=== PATIENT | male | born 1970 | race Caucasian/White ===

== ENCOUNTER 2016-05-11 20:57 | Emergency (ER) | payer OTHER ==
[~2016-05-11 20:57] MED LIST: ADVAIR DISKU1 INH; AMITRIPTYLINE H25 MG PO; FISH OIL PO; GLIPIZIDE5 MG PO; LANTUS SOL100 UNITS/ SC; LISINOPRIL20 MG PO; METFORMIN HCL1000 MG PO; PRO AIR IN; SPIRIVA18 MCG INH
--- NOTE | 2016-05-11 22:19 | ED ORDER SUMMARY ---
..... Patient: CESAR GRULLON OrderSheet [facility] VisitID: [id number] [address] [place] [address] 45y, M Registration Date/Time: 05/11/2016 ORDER SHEET Weight: 127.0 kg (stated) Allergies: No Known Drug Allergy GENERAL ORDERS: MEDICATION ORDERS: Albuterol Neb Tx 2.5 mg (NOW) (21:25 05/11/2016 Susy R.N. verbal order read back to Urban Buchanan) (21:26 Susy R.N.) Hydrocodone-APAP PO 5/325 mg (NOW, HIGH ALERT MEDICATION) (22:13 05/11/2016 KATHRYNivens A.R.N.P.) (22:19 Allyssa Quiroga.N.) IV FLUIDS: ORDER SHEET NOTES: [Electronically signed by Evelin MorenoR.N.PJosiah (22:34 05/11/2016)] [Electronically signed by Alayna Payton R.N. (11:05 05/12/2016)] [Electronically locked/signed by Alayna Payton R.N. (11:05/12/2016)]
--- NOTE | 2016-05-11 22:19 | ED CLINICAL REPORT ---
Clinical Report - Physicians/Mid Levels [facility] [address] [place] [address] 05/11/2016 20:57 Patient: CESAR GRULLON Time Seen: 21:30; initial patient contact, initial documentation, patient care assumed. Arrived- By private vehicle. Historian- patient. HISTORY OF PRESENT ILLNESS Chief Complaint: COUGH and SORE THROAT. This started about 4 days ago and is still present. The illness is described as moderate. The patient has had a cough, moderate difficulty breathing . The patient has also had wheezing, a sore throat and nasal congestion. He has had scant amounts of thick, green sputum. No chest discomfort or pain, fever or muscle aches. (pollen making his breathing worse last few days). Additional history - No known contact with a sick individual. No recent travel. Similar symptoms previously: Chronically, as bad. Recent medical care: Not recently seen/assessed. REVIEW OF SYSTEMS No headache, vomiting or diarrhea. All systems otherwise negative, except as recorded above. PAST HISTORY See nurses notes. PROBLEMS: Dental Pain. Abscess. Scabies. Back Injury. Back Pain. Myofascial Strain. Tetanus Status. Hyperlipidemia. COPD - Chronic Obstructive Pulmonary Disease. Pancreatitis. Bronchitis. Hiatal Hernia. Diabetes Mellitus. Hypertension. Immunizations. --21:19 Fidencio Olvera R.N. ADDITIONAL SURGERIES: Dental Surgery. Incision and drainage of abscess. --21:19 Fidencio Olvera RJosiahN. SOCIAL HISTORY Former smoker. Not exposed to second-hand smoke at home. No alcohol use or drug use. No recent travel. Is a local resident. FAMILY HISTORY Negative. ADDITIONAL NOTES The nursing notes have been reviewed with agreement regarding the chief complaint, HPI, ROS, PMH and patient medications and allergies. PHYSICAL EXAM Vital Signs: 05/11/2016 21:16 BP: 90/56. HR: 93. RR: 24. O2 saturation: 95%. Temp: 98.6 F. Pain level now: 10/10. Have been reviewed as abnormal and appear to be correct. Hypotensive. Heart rate normal. Respiratory rate normal. Temperature normal. Oxygen saturation normal. Appearance: Alert. No acute distress. Eyes: Pupils equal, round and reactive to light. Eyes normal inspection. ENT: Ears normal. Nose normal. Pharynx abnormal. Mild generalized pharyngeal erythema (cobblestone pharynx). No pharyngeal vesicles or ulcerations. No right tonsillar exudate, right tonsillar abscess, right tonsillar swelling, right peritonsillitis, left tonsillar exudate, left tonsillar abscess, left tonsillar swelling or left peritonsillitis. Uvula midline. Neck: Normal inspection. Neck supple. CVS: Normal heart rate and rhythm. Heart sounds normal. Pulses normal. Respiratory: No respiratory distress. Breath sounds normal. Abdomen: Moderately obese. Back: Normal inspection. Skin: Skin warm and dry. Normal skin color. No rash. Normal skin turgor. Extremities: Extremities exhibit normal ROM. No lower extremity edema. Neuro: Oriented X 3. No motor deficit. No sensory deficit. PROGRESS AND PROCEDURES Course of Care: RT Phan reporting he is doing an albuterol neb tx on pt, before I see him, he is having no resp distress and his lungs sound mild wet with mild wheezing pt asking for pain meds. 05/11/2016 21:46 BP: 111/74. HR: 97. RR: 24. O2 saturation: 99%. Pain level now: 9/10. Vital Signs: have been reviewed as normal and appear to be correct. Patient counseled in person regarding the patient's stable condition and diagnosis. 22:18. Differential Diagnosis: Other possible considerations: uri, flu, viral illness, copd exac, allergies, bronchitis, pneumonia, pharyngitis. Above considerations are based on history and physical exam. Differential diagnosis was discussed with patient. Disposition: Discharged home in good and improved condition (22:19). Condition: good and stable. CLINICAL IMPRESSION Stable COPD (asthmatic) INSTRUCTIONS Warnings: GENERAL WARNINGS: Return or contact your physician immediately if your condition worsens or changes unexpectedly, if not improving as expected, or if other problems arise. Specifically return if problem worsens. Prescription Medications: Prednisone 20 mg: take 3 orally every day for 5 days. Dispense fifteen (15). No refills. Zithromax 250 mg tablets: take 2 orally today, followed by 1 daily for the next 4 days. No refills. Substitution is permissible. Ultram 50 mg tablets: take 1-2 orally every 6 hours as needed for pain. Dispense twenty (20). No refills. Substitution is permissible. Follow-up: Follow up with your doctor in about three days even if well. Call for an appointment. Summary of care provided to patient. Understanding of the discharge instructions verbalized by patient. (Electronically signed by Evelin Moreno A.R.N.P. 05/11/2016 22:34)
--- NOTE | 2016-05-11 22:19 | ED ORDER SUMMARY ---
..... Patient: CESAR GRULLON OrderSheet [facility] VisitID: [id number] [address] [place] [address] 45y, M Registration Date/Time: 05/11/2016 ORDER SHEET Weight: 127.0 kg (stated) Allergies: No Known Drug Allergy GENERAL ORDERS: MEDICATION ORDERS: Albuterol Neb Tx 2.5 mg (NOW) (21:25 05/11/2016 Susy R.N. verbal order read back to Urban Buchanan) (21:26 Susy R.N.) Hydrocodone-APAP PO 5/325 mg (NOW, HIGH ALERT MEDICATION) (22:13 05/11/2016 KATHRYNivens A.R.N.P.) (22:19 Allyssa Quiroga.N.) IV FLUIDS: ORDER SHEET NOTES: [Electronically signed by Evelin MorenoR.N.PJosiah (22:34 05/11/2016)] [Electronically signed by Alayna Payton R.N. (11:05 05/12/2016)] [Electronically locked/signed by Alayna Payton R.N. (11:05/12/2016)]
--- NOTE | 2016-05-11 22:19 | ED NURSING NOTES ---
Clinical Report - Nurses [facility] [address] [place] [address] 05/11/2016 20:57 Patient: MARTELL GRULLON TRIAGE Triage time 21:19. Acuity: LEVEL 4. Chief Complaint: DIFFICULTY BREATHING and COUGH (Martell presents to the ED with shortness of breath he belives is due to either pollen from trees (allergies) or a cold like Strep throat. Ongoing for about 4 days. Alleviating factors: inhalers; Aggravating factors: movement.). Alert. ( RT at bedside evaluating Martell.). SEPSIS SCREEN: Sepsis Screen: negative. Negative (no infection suspected/documented). --21:21 Fidencio Olvera R.N. 21:16 05/11/16. BP: 90/56 (large adult cuff) taken on the left arm, via an automated monitor, while sitting. HR: 93 (normal rate). RR: 24 (regular, labored and rapid). O2 saturation: 95% on room air. Temp: 98.6 F (oral). Pain level now: 11/27. --21:21 Fidencio Olvera R.N. Weight: 127 kg stated. Height/Length: 69 inches Per Patient. BMI: 41.4. --21:20 Fidencio Olvera R.N. Medications Advair Diskus Inhalation. Amitriptyline HCl Oral 25 mg, daily. Amoxicillin Oral. Chantix Oral. Crestor Oral. Fish Oil Oral. Flovent HFA Inhalation. Ibuprofen Oral (Tablet 600 mg) 1 tablet, PRN (dental surgery). Jardiance Oral (Tablet 10 mg) 1 tablet, daily. Lantus Subcutaneous 10 units, at bedtime. Lasix Oral 20 mg, daily. Lisinopril Oral 20 mg, daily. MetFORMIN HCl Oral 1000mg bid. Percocet Oral 5/325 mg, PRN (dental surgery). ProAir HFA Inhalation. Spiriva HandiHaler Inhalation. --21:19 Fidencio Olvera R.N. Medication/allergy information source: the patient. --21:21 Fidencio Olvera R.N. Allergies No Known Drug Allergy. --21:19 Fidencio Olvera R.N. History Arrived by private vehicle. Historian: patient. Unaccompanied. The patient has had a cough productive of green sputum. He has had a sore throat and severe difficulty breathing. The patient has also had dyspnea on exertion. No chills, fever, sweating episodes, ear pain or sinus pain. Denies muscle aches. SOCIAL HX: Former smoker, end date 2015. No alcohol use or drug use. He has not traveled outside the [place] The patient was not exposed to MRSA. ABUSE ASSESSMENT: Abuse assessment: The patient was asked "Do you feel safe in your home?" and "Has anyone hurt you or threatened to hurt you?". No report of abuse. SELF HARM ASSESSMENT: A self harm assessment was performed. The patient answered "yes" to the question "Have you recently felt down, depressed, or hopeless?" and "Have you noticed less interest or pleasure in doing things?" and "no" to the question "Do you have thoughts of harming or killing yourself?", "Are you here because you tried to hurt yourself?", "Have you ever tried to hurt yourself before today?", "Have you recently had thoughts about harming or killing others?" and "Do you have any dangerous items in your possession?". FALL RISK ASSESSMENT: Fall risk assessment completed. No fall risk identified. NUTRITIONAL RISK ASSESSMENT: The nutritional risk assessment revealed no deficiencies. FUNCTIONAL ASSESSMENT: Functional assessment: no impairments noted. LEARNING NEEDS ASSESSMENT: The learning needs assessment revealed no barriers. SKIN INTEGRITY ASSESSMENT: Skin integrity risk assessment completed. No skin integrity risk identified. --21:21 Fidencio Olvera R.N. PROBLEMS: Dental Pain. Abscess. Scabies. Back Injury. Back Pain. Myofascial Strain. Tetanus Status. Hyperlipidemia. COPD - Chronic Obstructive Pulmonary Disease. Pancreatitis. Bronchitis. Hiatal Hernia. Diabetes Mellitus. Hypertension. Immunizations. --21:19 Fidencio Olvera R.N. ADDITIONAL SURGERIES: Dental Surgery. Incision and drainage of abscess. --21:19 Fidencio Olvera R.N. Assessment GENERAL / NEURO / PSYCH: Alert. Oriented X 4. Appears in distress. [place] Coma Scale: 15- eyes open spontaneously (4); best verbal response- oriented x 4 (5); best motor response- obeys commands (6). Patient appears calm and cooperative. RESPIRATORY: Moderate respiratory distress. The patient can speak in full sentences. --21:21 Fidencio Olvera R.N. Interventions ID band on patient. To treatment room. --21:21 Fidencio Olvera R.N. PHYSICAL ASSESSMENT GENERAL / NEURO / PSYCH: Alert. Oriented X 4. RESPIRATORY: Mild respiratory distress. Cough productive of moderate amounts of sputum. Decreased breath sounds in the right upper lung anteriorly. Expiratory wheezes present. Bilateral rhonchi present in the bases. CVS: Capillary refill less than 2 seconds. GI / : Abdomen nontender. SKIN: Skin is warm and dry. --21:49 Alayna Payton R.N. NURSING PROGRESS NOTES The initial plan of care for this patient has been created This plan of care was discussed with the patient. Pulse oximeter and NIBP monitor placed on patient. Patient gowned. Reassurance given to the patient. Two patient identifiers checked. Call light placed in reach. Patient placed in chair. Brakes of chair on. Patient ready for evaluation- ED physician and [employer] notified. --21:22 Fidencio Olvera R.N. 21:26 05/11/2016 Albuterol Neb TX Nebulizer 1 unit dose given. Given by the respiratory therapist. Allergies verified and confirmed 5 rights. --21:26 Fidencio Olvera R.N. Pulse oximeter and NIBP monitor placed on patient; monitor alarms on. Patient gowned. Call light placed in reach. Patient placed in chair. --21:48 Alayna Payton R.N. 21:46 05/11/16. BP: 111/74. HR: 97. RR: 24. O2 saturation: 99%. Pain level now: 10/28. --21:48 Alayna Payton R.N. 22:19 05/11/2016 Hydrocodone-APAP (Hydrocodone-Acetaminophen) PO 5/325 mg Tablets 1 tab given. Allergies verified, confirmed 5 rights and sedative warning given to the patient. --22:19 Alayna Payton R.N. DISPOSITION / DISCHARGE FALL RISK ASSESSMENT: Fall risk assessment completed. No fall risk identified. --22:12 Alayna Paytno R.N. 22:11 05/11/16. BP: 115/63. HR: 96. RR: 20. O2 saturation: 93%. Pain level now: 10/28. --22:12 Alayna Payton R.N. Departure time: May 11 2016. Condition at departure: improved. The following issues were addressed: pain control and comfort issues. No learning barriers present. Discharge instructions provided and reviewed with the patient. Reviewed medication(s) side effects, precautions, dosing and course information. Reviewed referral to a primary care physician. Patient verbalized understanding. Written instructions provided in Turkish. The patient was discharged home. He left the Emergency Department ambulatory and via private vehicle. Patient driving. --22:25 Alayna Payton R.N. Locked/Released at 05/12/2016 11:05 by Alayna Payton R.N.
--- NOTE | 2016-05-12 11:05 | ED DISCHARGE INSTRUCTIONS ---
Patient: CESAR GRULLON General Instructions [facility] VisitID: [id number] [place] [address] 45y, M Registration Date/Time: 05/11/2016 Stable COPD (asthmatic) INSTRUCTIONS Warnings: GENERAL WARNINGS: Return or contact your physician immediately if your condition worsens or changes unexpectedly, if not improving as expected, or if other problems arise. Specifically return if problem worsens. Prescription Medications: Prednisone 20 mg: take 3 orally every day for 5 days. Dispense fifteen (15). No refills. Zithromax 250 mg tablets: take 2 orally today, followed by 1 daily for the next 4 days. No refills. Substitution is permissible. Ultram 50 mg tablets: take 1-2 orally every 6 hours as needed for pain. Dispense twenty (20). No refills. Substitution is permissible. Follow-up: Follow up with your doctor in about three days even if well. Call for an appointment. Summary of care provided to patient. Understanding of the discharge instructions verbalized by patient. ADDITIONAL INFORMATION COPD Flare Both emphysema and chronic bronchitis are forms of chronic obstructive pulmonary disease (COPD). It is most often caused by many years of smoking tobacco. Many things can make your lung disease suddenly get worse. These causes include the common cold, pneumonia, acute bronchitis, missing doses of your regular breathing medicines, or being around smoke, dust, or other air pollutants. A COPD flare may last 7 to 14 days. Your doctor may prescribe medicineto relax your airways and prevent wheezing. Your doctor may also prescribe antibiotics if he or she thinks you havea bacterial infection. Prednisone can helpease inflammation in a severe attack. Home care Here are things you can do at home: Drink lots of water or other fluids (at least 10 glasses a day) during an attack. This will loosen lung secretions and make it easier to breathe. If you have heart or kidney disease, check with your doctor before you drink extra amounts of fluids. Take prescribed medicine exactly at the times advised. If you have a hand-held inhaler or aerosol breathing medicine, don't use it more than once every 4 hours, unless your doctor tells you to. If you were givenan antibiotic or prednisone, take all of the medicine even if you are feeling better after a few days. Don't smoke. Avoid being aroundthe smoke of others. If you were given an inhaler, use it exactly as directed. If you need to use it more often than prescribed, your condition may be getting worse. Call your doctor. Follow-up care Follow up with your health care provider.If you are 65 or older or have chronic asthma or COPD, you should get a single dose of the pneumococcal vaccine and aflu shot each year. You may need a second dose of the pneumococcal vaccine if you had the first dose at a younger age. Your health care provider will let you know if you need a second dose. For all other people, the usual dose for the pneumococcal vaccine is 1 or 2 shots. Yourprovider can discuss this with you. When to seek medical care Get prompt medical attention ifany of these occur: Increased wheezing or shortness of breath Need to use your inhalers more often than usual without relief Fever of 100.4F(38C) or higher, or as directed by your health care provider Coughing up lots of dark-colored or bloody sputum (mucus) Chest pain with each breath You do not start to improve within 24 hours Bronchitis (Adult: Abx Tx) BRONCHITIS is an infection of the air passages (bronchial tubes). It often occurs during the common cold. Symptoms include cough with mucus (phlegm) and low-grade fever. Bronchitis usually lasts 7-14 days. Mild cases can be treated with simple home remedies. More severe infection is treated with an antibiotic. Home Care: If symptoms are severe, rest at home for the first 2-3 days. When you resume activity, don't let yourself get too tired. Do not smoke. Avoid being exposed to the smoke of others. You may use acetaminophen (Tylenol) or ibuprofen (Motrin, Advil) to control fever or pain, unless another medicine was prescribed for this. [NOTE: If you have chronic liver or kidney disease or ever had a stomach ulcer or GI bleeding, talk with your doctor before using these medicines.] Your appetite may be poor, so a light diet is fine. Avoid dehydration by drinking 6-8 glasses of fluids per day (water, soft, drinks, juices, tea, soup, etc.). Extra fluids will help loosen secretions in the lungs. Etyp-qby-ngojswl cough medicines that containdextromethorphan(such as Robitussin DM) and decongestants (Actifed or Sudafed) may help relieve cough and congestion. [NOTE: Do not use decongestants if you have high blood pressure.] Finish all antibiotic medicine, even if you are feeling better after only a few days. Follow Up with your doctor or as directed if you dont start to feel better after three days. [NOTE: If you are age 65 or older, or if you have chronic asthma or COPD, we recommend a PNEUMOCOCCAL VACCINATION every five years and a yearly INFLUENZAVACCINATION (FLU-SHOT) every . Ask your doctor about this. If you had an X-ray, a radiologist will review it. You will be notified of any new findings that may affect your care.] Get Prompt Medical Attention if any of the following occur: Fever over 100.4F (38.0C) for more than three days Trouble breathing, wheezing or pain with breathing Coughing up blood or increased amounts of colored sputum Weakness, drowsiness, headache, facial pain, ear pain or a stiff neck Prednisone Oral tablet What is this medicine? PREDNISONE (PRED ni sone) is a corticosteroid. It is commonly used to treat inflammation of the skin, joints, lungs, and other organs. Common conditions treated include asthma, allergies, and arthritis. It is also used for other conditions, such as blood disorders and diseases of the adrenal glands. How should I use this medicine? Take this medicine by mouth with a glass of water. Follow the directions on the prescription label. Take this medicine with food. If you are taking this medicine once a day, take it in the morning. Do not take more medicine than you are told to take. Do not suddenly stop taking your medicine because you may develop a severe reaction. Your doctor will tell you how much medicine to take. If your doctor wants you to stop the medicine, the dose may be slowly lowered over time to avoid any side effects. Talk to your manager investment banking regarding the use of this medicine in children. Special care may be needed. What side effects may I notice from receiving this medicine? Side effects that you should report to your doctor or health critical care transport nurse as soon as possible: allergic reactions like skin rash, itching or hives, swelling of the face, lips, or tongue changes in emotions or moods changes in vision depressed mood eye pain fever or chills, cough, sore throat, pain or difficulty passing urine increased thirst swelling of ankles, feet Side effects that usually do not require medical attention (report to your doctor or health critical care transport nurse if they continue or are bothersome): confusion, excitement, restlessness headache nausea, vomiting skin problems, acne, thin and shiny skin trouble sleeping weight gain What may interact with this medicine? Do not take this medicine with any of the following medications: metyrapone mifepristone This medicine may also interact with the following medications: aminoglutethimide amphotericin B aspirin and aspirin-like medicines barbiturates certain medicines for diabetes, like glipizide or glyburide cholestyramine cholinesterase inhibitors cyclosporine digoxin diuretics ephedrine female hormones, like estrogens and control pills isoniazid ketoconazole NSAIDS, medicines for pain and inflammation, like ibuprofen or naproxen phenytoin rifampin toxoids vaccines warfarin What if I miss a dose? If you miss a dose, take it as soon as you can. If it is almost time for your next dose, talk to your doctor or health critical care transport nurse. You may need to miss a dose or take an extra dose. Do not take double or extra doses without advice. Where should I keep my medicine? Keep out of the reach of children. Store at room temperature between 15 and 30 degrees C (59 and 86 degrees F). Protect from light. Keep container tightly closed. Throw away any unused medicine after the expiration date. What should I tell my health care provider before I take this medicine? They need to know if you have any of these conditions: Turner's syndrome diabetes glaucoma heart disease high blood pressure infection (especially a virus infection such as chickenpox, cold sores, or herpes) kidney disease liver disease mental illness myasthenia gravis osteoporosis seizures stomach or intestine problems thyroid disease an unusual or allergic reaction to lactose, prednisone, other medicines, foods, dyes, or preservatives or trying to get breast-feeding What should I watch for while using this medicine? Visit your doctor or health critical care transport nurse for regular checks on your progress. If you are taking this medicine over a prolonged period, carry an identification card with your name and address, the type and dose of your medicine, and your doctor's name and address. This medicine may increase your risk of getting an infection. Tell your doctor or health critical care transport nurse if you are around anyone with measles or chickenpox, or if you develop sores or blisters that do not heal properly. If you are going to have surgery, tell your doctor or health critical care transport nurse that you have taken this medicine within the last twelve months. Ask your doctor or health critical care transport nurse about your diet. You may need to lower the amount of salt you eat. This medicine may affect blood sugar levels. If you have diabetes, check with your doctor or health critical care transport nurse before you change your diet or the dose of your diabetic medicine. Azithromycin Oral tablet What is this medicine? AZITHROMYCIN (az ith justin MYERS sin) is a macrolide antibiotic. It is used to treat or prevent certain kinds of bacterial infections. It will not work for colds, flu, or other viral infections. How should I use this medicine? Take this medicine by mouth with a full glass of water. Follow the directions on the prescription label. The tablets can be taken with food or on an empty stomach. If the medicine upsets your stomach, take it with food. Take your medicine at regular intervals. Do not take your medicine more often than directed. Take all of your medicine as directed even if you think your are better. Do not skip doses or stop your medicine early. Talk to your manager investment banking regarding the use of this medicine in children. Special care may be needed. What side effects may I notice from receiving this medicine? Side effects that you should report to your doctor or health critical care transport nurse as soon as possible: allergic reactions like skin rash, itching or hives, swelling of the face, lips, or tongue confusion, nightmares or hallucinations dark urine difficulty breathing hearing loss irregular heartbeat or chest pain pain or difficulty passing urine redness, blistering, peeling or loosening of the skin, including inside the mouth white patches or sores in the mouth yellowing of the eyes or skin Side effects that usually do not require medical attention (report to your doctor or health critical care transport nurse if they continue or are bothersome): diarrhea dizziness, drowsiness headache stomach upset or vomiting tooth discoloration vaginal irritation What may interact with this medicine? Do not take this medicine with any of the following medications: lincomycin This medicine may also interact with the following medications: amiodarone antacids cyclosporine digoxin magnesium nelfinavir phenytoin warfarin What if I miss a dose? If you miss a dose, take it as soon as you can. If it is almost time for your next dose, take only that dose. Do not take double or extra doses. Where should I keep my medicine? Keep out of the reach of children. Store at room temperature between 15 and 30 degrees C (59 and 86 degrees F). Throw away any unused medicine after the expiration date. What should I tell my health care provider before I take this medicine? They need to know if you have any of these conditions: kidney disease liver disease irregular heartbeat or heart disease an unusual or allergic reaction to azithromycin, erythromycin, other macrolide antibiotics, foods, dyes, or preservatives or trying to get breast-feeding What should I watch for while using this medicine? Tell your doctor or health critical care transport nurse if your symptoms do not improve. Do not treat diarrhea with over the counter products. Contact your doctor if you have diarrhea that lasts more than 2 days or if it is severe and watery. This medicine can make you more sensitive to the sun. Keep out of the sun. If you cannot avoid being in the sun, wear protective clothing and use sunscreen. Do not use sun lamps or tanning beds/booths. Tramadol Hydrochloride Oral tablet What is this medicine? TRAMADOL (TRA ma dole) is a pain reliever. It is used to treat moderate to severe pain in adults. How should I use this medicine? Take this medicine by mouth with a full glass of water. Follow the directions on the prescription label. If the medicine upsets your stomach, take it with food or milk. Do not take more medicine than you are told to take. Talk to your manager investment banking regarding the use of this medicine in children. Special care may be needed. What side effects may I notice from receiving this medicine? Side effects that you should report to your doctor or health critical care transport nurse as soon as possible: allergic reactions like skin rash, itching or hives, swelling of the face, lips, or tongue breathing difficulties, wheezing confusion itching light headedness or fainting spells redness, blistering, peeling or loosening of the skin, including inside the mouth seizures Side effects that usually do not require medical attention (report to your doctor or health critical care transport nurse if they continue or are bothersome): constipation dizziness drowsiness headache nausea, vomiting What may interact with this medicine? Do not take this medicine with any of the following medications: MAOIs like Carbex, Eldepryl, Marplan, Nardil, and Parnate This medicine may also interact with the following medications: alcohol or medicines that contain alcohol antihistamines benzodiazepines bupropion carbamazepine or oxcarbazepine clozapine cyclobenzaprine digoxin furazolidone linezolid medicines for depression, anxiety, or psychotic disturbances medicines for migraine headache like almotriptan, eletriptan, frovatriptan, naratriptan, rizatriptan, sumatriptan, zolmitriptan medicines for pain like pentazocine, buprenorphine, butorphanol, meperidine, nalbuphine, and propoxyphene medicines for sleep muscle relaxants naltrexone phenobarbital phenothiazines like perphenazine, thioridazine, chlorpromazine, mesoridazine, fluphenazine, prochlorperazine, promazine, and trifluoperazine procarbazine warfarin What if I miss a dose? If you miss a dose, take it as soon as you can. If it is almost time for your next dose, take only that dose. Do not take double or extra doses. Where should I keep my medicine? Keep out of the reach of children. Store at room temperature between 15 and 30 degrees C (59 and 86 degrees F). Keep container tightly closed. Throw away any unused medicine after the expiration date. What should I tell my health care provider before I take this medicine? They need to know if you have any of these conditions: brain tumor depression drug abuse or addiction head injury if you frequently drink alcohol containing drinks kidney disease or trouble passing urine liver disease lung disease, asthma, or breathing problems seizures or epilepsy suicidal thoughts, plans, or attempt; a previous suicide attempt by you or a family member an unusual or allergic reaction to tramadol, codeine, other medicines, foods, dyes, or preservatives or trying to get breast-feeding What should I watch for while using this medicine? Tell your doctor or health critical care transport nurse if your pain does not go away, if it gets worse, or if you have new or a different type of pain. You may develop tolerance to the medicine. Tolerance means that you will need a higher dose of the medicine for pain relief. Tolerance is normal and is expected if you take this medicine for a long time. Do not suddenly stop taking your medicine because you may develop a severe reaction. Your body becomes used to the medicine. This does NOT mean you are addicted. Addiction is a behavior related to getting and using a drug for a non-medical reason. If you have pain, you have a medical reason to take pain medicine. Your doctor will tell you how much medicine to take. If your doctor wants you to stop the medicine, the dose will be slowly lowered over time to avoid any side effects. You may get drowsy or dizzy. Do not drive, use machinery, or do anything that needs mental alertness until you know how this medicine affects you. Do not stand or sit up quickly, especially if you are an older patient. This reduces the risk of dizzy or fainting spells. Alcohol can increase or decrease the effects of this medicine. Avoid alcoholic drinks. You may have constipation. Try to have a bowel movement at least every 2 to 3 days. If you do not have a bowel movement for 3 days, call your doctor or health critical care transport nurse. Your mouth may get dry. Chewing sugarless gum or sucking hard candy, and drinking plenty of water may help. Contact your doctor if the problem does not go away or is severe. You have been given the following additional information: COPD Flare Bronchitis, Antiobiotic Treatment (Adult) Prednisone Oral tablet Azithromycin Oral tablet Tramadol Hydrochloride Oral tablet (Electronically signed by Evelin Moreno A.R.N.P. 05/11/2016 22:34)
--- NOTE | 2016-05-12 11:05 | ED MED RECONCILIATION SUMMARY ---
Patient: CESAR GRULLON Medication Reconciliation Report [facility] VisitID: [id number] [place] [address] 45y, M Registration Date/Time: 05/11/2016 Weight: 127.0 kg Height/Length: 69 in. BMI: 41.4 ALLERGIES: No Known Drug Allergy The patient's Home Medications are listed below: THE FOLLOWING MEDICATIONS NEED TO BE RECONCILED: Advair Diskus Inhalation Amitriptyline HCl Oral 25 mg, daily Amoxicillin Oral Chantix Oral Crestor Oral Fish Oil Oral Flovent HFA Inhalation Ibuprofen Oral (600 mg) 1 tablet, PRN, dental surgery Jardiance Oral (10 mg) 1 tablet, daily Lantus Subcutaneous 10 units, at bedtime Lasix Oral 20 mg, daily Lisinopril Oral 20 mg, daily MetFORMIN HCl Oral 1000mg bid Percocet Oral 5/325 mg, PRN, dental surgery ProAir HFA Inhalation Spiriva HandiHaler Inhalation The source(s) of the original Home Medication information: patient The following Medications were given to the patient in the Emergency Department: Albuterol [Neb Tx] Neb TX 1 unit dose, administered: 05/11/2016 9:26:00 PM Hydrocodone-APAP [PO] PO 1 tab, administered: 05/11/2016 10:19:00 PM The following Medications were prescribed to the patient: Prednisone 20 mg: take 3 orally every day for 5 days. Dispense fifteen (15). No refills. -- Evelin Moreno A.R.N.P. Zithromax 250 mg tablets: take 2 orally today, followed by 1 daily for the next 4 days. No refills. Substitution is permissible. -- Evelin Moreno A.R.N.P. Ultram 50 mg tablets: take 1-2 orally every 6 hours as needed for pain. Dispense twenty (20). No refills. Substitution is permissible. -- Evelin Moreno A.R.N.P.
--- NOTE | 2016-05-12 11:05 | ED DISCHARGE INSTRUCTIONS ---
Patient: CESAR GRULLON General Instructions [facility] VisitID: [id number] [place] [address] 45y, M Registration Date/Time: 05/11/2016 Stable COPD (asthmatic) INSTRUCTIONS Warnings: GENERAL WARNINGS: Return or contact your physician immediately if your condition worsens or changes unexpectedly, if not improving as expected, or if other problems arise. Specifically return if problem worsens. Prescription Medications: Prednisone 20 mg: take 3 orally every day for 5 days. Dispense fifteen (15). No refills. Zithromax 250 mg tablets: take 2 orally today, followed by 1 daily for the next 4 days. No refills. Substitution is permissible. Ultram 50 mg tablets: take 1-2 orally every 6 hours as needed for pain. Dispense twenty (20). No refills. Substitution is permissible. Follow-up: Follow up with your doctor in about three days even if well. Call for an appointment. Summary of care provided to patient. Understanding of the discharge instructions verbalized by patient. ADDITIONAL INFORMATION COPD Flare Both emphysema and chronic bronchitis are forms of chronic obstructive pulmonary disease (COPD). It is most often caused by many years of smoking tobacco. Many things can make your lung disease suddenly get worse. These causes include the common cold, pneumonia, acute bronchitis, missing doses of your regular breathing medicines, or being around smoke, dust, or other air pollutants. A COPD flare may last 7 to 14 days. Your doctor may prescribe medicineto relax your airways and prevent wheezing. Your doctor may also prescribe antibiotics if he or she thinks you havea bacterial infection. Prednisone can helpease inflammation in a severe attack. Home care Here are things you can do at home: Drink lots of water or other fluids (at least 10 glasses a day) during an attack. This will loosen lung secretions and make it easier to breathe. If you have heart or kidney disease, check with your doctor before you drink extra amounts of fluids. Take prescribed medicine exactly at the times advised. If you have a hand-held inhaler or aerosol breathing medicine, don't use it more than once every 4 hours, unless your doctor tells you to. If you were givenan antibiotic or prednisone, take all of the medicine even if you are feeling better after a few days. Don't smoke. Avoid being aroundthe smoke of others. If you were given an inhaler, use it exactly as directed. If you need to use it more often than prescribed, your condition may be getting worse. Call your doctor. Follow-up care Follow up with your health care provider.If you are 65 or older or have chronic asthma or COPD, you should get a single dose of the pneumococcal vaccine and aflu shot each year. You may need a second dose of the pneumococcal vaccine if you had the first dose at a younger age. Your health care provider will let you know if you need a second dose. For all other people, the usual dose for the pneumococcal vaccine is 1 or 2 shots. Yourprovider can discuss this with you. When to seek medical care Get prompt medical attention ifany of these occur: Increased wheezing or shortness of breath Need to use your inhalers more often than usual without relief Fever of 100.4F(38C) or higher, or as directed by your health care provider Coughing up lots of dark-colored or bloody sputum (mucus) Chest pain with each breath You do not start to improve within 24 hours Bronchitis (Adult: Abx Tx) BRONCHITIS is an infection of the air passages (bronchial tubes). It often occurs during the common cold. Symptoms include cough with mucus (phlegm) and low-grade fever. Bronchitis usually lasts 7-14 days. Mild cases can be treated with simple home remedies. More severe infection is treated with an antibiotic. Home Care: If symptoms are severe, rest at home for the first 2-3 days. When you resume activity, don't let yourself get too tired. Do not smoke. Avoid being exposed to the smoke of others. You may use acetaminophen (Tylenol) or ibuprofen (Motrin, Advil) to control fever or pain, unless another medicine was prescribed for this. [NOTE: If you have chronic liver or kidney disease or ever had a stomach ulcer or GI bleeding, talk with your doctor before using these medicines.] Your appetite may be poor, so a light diet is fine. Avoid dehydration by drinking 6-8 glasses of fluids per day (water, soft, drinks, juices, tea, soup, etc.). Extra fluids will help loosen secretions in the lungs. [id number] cough medicines that containdextromethorphan(such as Robitussin DM) and decongestants (Actifed or Sudafed) may help relieve cough and congestion. [NOTE: Do not use decongestants if you have high blood pressure.] Finish all antibiotic medicine, even if you are feeling better after only a few days. Follow Up with your doctor or as directed if you dont start to feel better after three days. [NOTE: If you are age 65 or older, or if you have chronic asthma or COPD, we recommend a PNEUMOCOCCAL VACCINATION every five years and a yearly INFLUENZAVACCINATION (FLU-SHOT) every . Ask your doctor about this. If you had an X-ray, a radiologist will review it. You will be notified of any new findings that may affect your care.] Get Prompt Medical Attention if any of the following occur: Fever over 100.4F (38.0C) for more than three days Trouble breathing, wheezing or pain with breathing Coughing up blood or increased amounts of colored sputum Weakness, drowsiness, headache, facial pain, ear pain or a stiff neck Prednisone Oral tablet What is this medicine? PREDNISONE (PRED ni sone) is a corticosteroid. It is commonly used to treat inflammation of the skin, joints, lungs, and other organs. Common conditions treated include asthma, allergies, and arthritis. It is also used for other conditions, such as blood disorders and diseases of the adrenal glands. How should I use this medicine? Take this medicine by mouth with a glass of water. Follow the directions on the prescription label. Take this medicine with food. If you are taking this medicine once a day, take it in the morning. Do not take more medicine than you are told to take. Do not suddenly stop taking your medicine because you may develop a severe reaction. Your doctor will tell you how much medicine to take. If your doctor wants you to stop the medicine, the dose may be slowly lowered over time to avoid any side effects. Talk to your tin pot operator regarding the use of this medicine in children. Special care may be needed. What side effects may I notice from receiving this medicine? Side effects that you should report to your doctor or health rn progressive care as soon as possible: allergic reactions like skin rash, itching or hives, swelling of the face, lips, or tongue changes in emotions or moods changes in vision depressed mood eye pain fever or chills, cough, sore throat, pain or difficulty passing urine increased thirst swelling of ankles, feet Side effects that usually do not require medical attention (report to your doctor or health rn progressive care if they continue or are bothersome): confusion, excitement, restlessness headache nausea, vomiting skin problems, acne, thin and shiny skin trouble sleeping weight gain What may interact with this medicine? Do not take this medicine with any of the following medications: metyrapone mifepristone This medicine may also interact with the following medications: aminoglutethimide amphotericin B aspirin and aspirin-like medicines barbiturates certain medicines for diabetes, like glipizide or glyburide cholestyramine cholinesterase inhibitors cyclosporine digoxin diuretics ephedrine female hormones, like estrogens and control pills isoniazid ketoconazole NSAIDS, medicines for pain and inflammation, like ibuprofen or naproxen phenytoin rifampin toxoids vaccines warfarin What if I miss a dose? If you miss a dose, take it as soon as you can. If it is almost time for your next dose, talk to your doctor or health rn progressive care. You may need to miss a dose or take an extra dose. Do not take double or extra doses without advice. Where should I keep my medicine? Keep out of the reach of children. Store at room temperature between 15 and 30 degrees C (59 and 86 degrees F). Protect from light. Keep container tightly closed. Throw away any unused medicine after the expiration date. What should I tell my health care provider before I take this medicine? They need to know if you have any of these conditions: Turner's syndrome diabetes glaucoma heart disease high blood pressure infection (especially a virus infection such as chickenpox, cold sores, or herpes) kidney disease liver disease mental illness myasthenia gravis osteoporosis seizures stomach or intestine problems thyroid disease an unusual or allergic reaction to lactose, prednisone, other medicines, foods, dyes, or preservatives or trying to get breast-feeding What should I watch for while using this medicine? Visit your doctor or health rn progressive care for regular checks on your progress. If you are taking this medicine over a prolonged period, carry an identification card with your name and address, the type and dose of your medicine, and your doctor's name and address. This medicine may increase your risk of getting an infection. Tell your doctor or health rn progressive care if you are around anyone with measles or chickenpox, or if you develop sores or blisters that do not heal properly. If you are going to have surgery, tell your doctor or health rn progressive care that you have taken this medicine within the last twelve months. Ask your doctor or health rn progressive care about your diet. You may need to lower the amount of salt you eat. This medicine may affect blood sugar levels. If you have diabetes, check with your doctor or health rn progressive care before you change your diet or the dose of your diabetic medicine. Azithromycin Oral tablet What is this medicine? AZITHROMYCIN (az ith justin MYERS sin) is a macrolide antibiotic. It is used to treat or prevent certain kinds of bacterial infections. It will not work for colds, flu, or other viral infections. How should I use this medicine? Take this medicine by mouth with a full glass of water. Follow the directions on the prescription label. The tablets can be taken with food or on an empty stomach. If the medicine upsets your stomach, take it with food. Take your medicine at regular intervals. Do not take your medicine more often than directed. Take all of your medicine as directed even if you think your are better. Do not skip doses or stop your medicine early. Talk to your tin pot operator regarding the use of this medicine in children. Special care may be needed. What side effects may I notice from receiving this medicine? Side effects that you should report to your doctor or health rn progressive care as soon as possible: allergic reactions like skin rash, itching or hives, swelling of the face, lips, or tongue confusion, nightmares or hallucinations dark urine difficulty breathing hearing loss irregular heartbeat or chest pain pain or difficulty passing urine redness, blistering, peeling or loosening of the skin, including inside the mouth white patches or sores in the mouth yellowing of the eyes or skin Side effects that usually do not require medical attention (report to your doctor or health rn progressive care if they continue or are bothersome): diarrhea dizziness, drowsiness headache stomach upset or vomiting tooth discoloration vaginal irritation What may interact with this medicine? Do not take this medicine with any of the following medications: lincomycin This medicine may also interact with the following medications: amiodarone antacids cyclosporine digoxin magnesium nelfinavir phenytoin warfarin What if I miss a dose? If you miss a dose, take it as soon as you can. If it is almost time for your next dose, take only that dose. Do not take double or extra doses. Where should I keep my medicine? Keep out of the reach of children. Store at room temperature between 15 and 30 degrees C (59 and 86 degrees F). Throw away any unused medicine after the expiration date. What should I tell my health care provider before I take this medicine? They need to know if you have any of these conditions: kidney disease liver disease irregular heartbeat or heart disease an unusual or allergic reaction to azithromycin, erythromycin, other macrolide antibiotics, foods, dyes, or preservatives or trying to get breast-feeding What should I watch for while using this medicine? Tell your doctor or health rn progressive care if your symptoms do not improve. Do not treat diarrhea with over the counter products. Contact your doctor if you have diarrhea that lasts more than 2 days or if it is severe and watery. This medicine can make you more sensitive to the sun. Keep out of the sun. If you cannot avoid being in the sun, wear protective clothing and use sunscreen. Do not use sun lamps or tanning beds/booths. Tramadol Hydrochloride Oral tablet What is this medicine? TRAMADOL (TRA ma dole) is a pain reliever. It is used to treat moderate to severe pain in adults. How should I use this medicine? Take this medicine by mouth with a full glass of water. Follow the directions on the prescription label. If the medicine upsets your stomach, take it with food or milk. Do not take more medicine than you are told to take. Talk to your tin pot operator regarding the use of this medicine in children. Special care may be needed. What side effects may I notice from receiving this medicine? Side effects that you should report to your doctor or health rn progressive care as soon as possible: allergic reactions like skin rash, itching or hives, swelling of the face, lips, or tongue breathing difficulties, wheezing confusion itching light headedness or fainting spells redness, blistering, peeling or loosening of the skin, including inside the mouth seizures Side effects that usually do not require medical attention (report to your doctor or health rn progressive care if they continue or are bothersome): constipation dizziness drowsiness headache nausea, vomiting What may interact with this medicine? Do not take this medicine with any of the following medications: MAOIs like Carbex, Eldepryl, Marplan, Nardil, and Parnate This medicine may also interact with the following medications: alcohol or medicines that contain alcohol antihistamines benzodiazepines bupropion carbamazepine or oxcarbazepine clozapine cyclobenzaprine digoxin furazolidone linezolid medicines for depression, anxiety, or psychotic disturbances medicines for migraine headache like almotriptan, eletriptan, frovatriptan, naratriptan, rizatriptan, sumatriptan, zolmitriptan medicines for pain like pentazocine, buprenorphine, butorphanol, meperidine, nalbuphine, and propoxyphene medicines for sleep muscle relaxants naltrexone phenobarbital phenothiazines like perphenazine, thioridazine, chlorpromazine, mesoridazine, fluphenazine, prochlorperazine, promazine, and trifluoperazine procarbazine warfarin What if I miss a dose? If you miss a dose, take it as soon as you can. If it is almost time for your next dose, take only that dose. Do not take double or extra doses. Where should I keep my medicine? Keep out of the reach of children. Store at room temperature between 15 and 30 degrees C (59 and 86 degrees F). Keep container tightly closed. Throw away any unused medicine after the expiration date. What should I tell my health care provider before I take this medicine? They need to know if you have any of these conditions: brain tumor depression drug abuse or addiction head injury if you frequently drink alcohol containing drinks kidney disease or trouble passing urine liver disease lung disease, asthma, or breathing problems seizures or epilepsy suicidal thoughts, plans, or attempt; a previous suicide attempt by you or a family member an unusual or allergic reaction to tramadol, codeine, other medicines, foods, dyes, or preservatives or trying to get breast-feeding What should I watch for while using this medicine? Tell your doctor or health rn progressive care if your pain does not go away, if it gets worse, or if you have new or a different type of pain. You may develop tolerance to the medicine. Tolerance means that you will need a higher dose of the medicine for pain relief. Tolerance is normal and is expected if you take this medicine for a long time. Do not suddenly stop taking your medicine because you may develop a severe reaction. Your body becomes used to the medicine. This does NOT mean you are addicted. Addiction is a behavior related to getting and using a drug for a non-medical reason. If you have pain, you have a medical reason to take pain medicine. Your doctor will tell you how much medicine to take. If your doctor wants you to stop the medicine, the dose will be slowly lowered over time to avoid any side effects. You may get drowsy or dizzy. Do not drive, use machinery, or do anything that needs mental alertness until you know how this medicine affects you. Do not stand or sit up quickly, especially if you are an older patient. This reduces the risk of dizzy or fainting spells. Alcohol can increase or decrease the effects of this medicine. Avoid alcoholic drinks. You may have constipation. Try to have a bowel movement at least every 2 to 3 days. If you do not have a bowel movement for 3 days, call your doctor or health rn progressive care. Your mouth may get dry. Chewing sugarless gum or sucking hard candy, and drinking plenty of water may help. Contact your doctor if the problem does not go away or is severe. You have been given the following additional information: COPD Flare Bronchitis, Antiobiotic Treatment (Adult) Prednisone Oral tablet Azithromycin Oral tablet Tramadol Hydrochloride Oral tablet (Electronically signed by Evelin Moreno A.R.N.P. 05/11/2016 22:34)
--- NOTE | 2016-05-12 11:05 | ED MAR SUMMARY ---
..... Medication Administration Record [facility] [address] [place] [address] Patient: CESAR GRULLON Visit ID: [id number] 45y, M Weight: 127.0 kg Height/Length: 69 in BMI: 41.4 ALLERGIES: No Known Drug Allergy Given 21:26 05/11/2016 Fidencio Olvera RTroy Medication Administered: ALBUTEROL [NEB TX], Dose: 1 unit dose Nebulizer Neb TX. Medication Ordered: Albuterol Neb Tx 2.5 mg (NOW). Given 22:19 05/11/2016 Alayna Payton RTroy Medication Administered: HYDROCODONE-APAP [PO] (HYDROCODONE-ACETAMINOPHEN), Dose: 1 tab 5/325 mg Tablets PO. Medication Ordered: Hydrocodone-APAP PO 5/325 mg (NOW, HIGH ALERT MEDICATION).
--- NOTE | 2016-05-12 11:05 | ED MED RECONCILIATION SUMMARY ---
Patient: CESAR GRULLON Medication Reconciliation Report [facility] VisitID: [id number] [address] [place] [address] 45y, M Registration Date/Time: 05/11/2016 Weight: 127.0 kg Height/Length: 69 in. BMI: 41.4 ALLERGIES: No Known Drug Allergy The patient's Home Medications are listed below: THE FOLLOWING MEDICATIONS NEED TO BE RECONCILED: Advair Diskus Inhalation Amitriptyline HCl Oral 25 mg, daily Amoxicillin Oral Chantix Oral Crestor Oral Fish Oil Oral Flovent HFA Inhalation Ibuprofen Oral (600 mg) 1 tablet, PRN, dental surgery Jardiance Oral (10 mg) 1 tablet, daily Lantus Subcutaneous 10 units, at bedtime Lasix Oral 20 mg, daily Lisinopril Oral 20 mg, daily MetFORMIN HCl Oral 1000mg bid Percocet Oral 5/325 mg, PRN, dental surgery ProAir HFA Inhalation Spiriva HandiHaler Inhalation The source(s) of the original Home Medication information: patient The following Medications were given to the patient in the Emergency Department: Albuterol [Neb Tx] Neb TX 1 unit dose, administered: 05/11/2016 9:26:00 PM Hydrocodone-APAP [PO] PO 1 tab, administered: 05/11/2016 10:19:00 PM The following Medications were prescribed to the patient: Prednisone 20 mg: take 3 orally every day for 5 days. Dispense fifteen (15). No refills. -- Evelin Moreno A.R.N.P. Zithromax 250 mg tablets: take 2 orally today, followed by 1 daily for the next 4 days. No refills. Substitution is permissible. -- Evelin Moreno A.R.N.P. Ultram 50 mg tablets: take 1-2 orally every 6 hours as needed for pain. Dispense twenty (20). No refills. Substitution is permissible. -- Evelin Moreno A.R.N.P.
--- NOTE | 2016-05-12 11:05 | ED MAR SUMMARY ---
..... Medication Administration Record [facility] [address] [place] [address] Patient: CESAR GRULLON Visit ID: [id number] 45y, M Weight: 127.0 kg Height/Length: 69 in BMI: 41.4 ALLERGIES: No Known Drug Allergy Given 21:26 05/11/2016 Fidencio Olvera RTroy Medication Administered: ALBUTEROL [NEB TX], Dose: 1 unit dose Nebulizer Neb TX. Medication Ordered: Albuterol Neb Tx 2.5 mg (NOW). Given 22:19 05/11/2016 Alayna Payton RTroy Medication Administered: HYDROCODONE-APAP [PO] (HYDROCODONE-ACETAMINOPHEN), Dose: 1 tab 5/325 mg Tablets PO. Medication Ordered: Hydrocodone-APAP PO 5/325 mg (NOW, HIGH ALERT MEDICATION).
== END 2016-05-11 22:25 | disposition home or self-care (01) ==
LOC: ED SRH 20:57
DX: J44.9 Chronic obstructive pulmonary disease, unspecified (principal); E11.9 Type 2 diabetes mellitus without complications; I10 Essential (primary) hypertension; Z79.51 Long term (current) use of inhaled steroids; Z79.84 Long term (current) use of oral hypoglycemic drugs; Z79.2 Long term (current) use of antibiotics; Z79.899 Other long term (current) drug therapy